=== PATIENT | female | born 1995 | race Caucasian/White ===

== ENCOUNTER 2024-06-30 07:54 | Emergency (ER) | payer BC, MEDICAID ==
[2024-06-30 08:16] LABS: BASOPHILS ABSOLUTE AUTO 0.05 K/uL (0.00-0.10); BASOPHILS PERCENT AUTO 0.6 % (0.1-1.3); EOSINOPHILS ABSOLUTE AUTO 1.84 K/uL (0.00-0.40); EOSINOPHILS PERCENT AUTO 21.6 % (0.0-5.4); HEMATOCRIT 47.6 % (34.3-46.0); HEMOGLOBIN 16.3 g/dL (11.2-15.5); IMMATURE GRAN PERCENT AUTO 0.2 % (0.0-0.7); LYMPHOCYTES ABSOLUTE AUTO 1.25 K/uL (0.8-3.3); LYMPHOCYTES PERCENT AUTO 14.7 % (11.4-47.7); MEAN CORPUSCULAR HEMOGLOBIN 28.4 pg (31.6-35.5); MEAN CORPUSCULAR HGB CONC 34.2 g/dL (31.6-35.5); MEAN CORPUSCULAR VOLUME 82.9 fL (81.4-99.0); MONOCYTES ABSOLUTE AUTO 0.96 K/uL (0.20-0.90); MONOCYTES PERCENT AUTO 11.3 % (3.3-12.6); NEUTROPHILS ABSOLUTE AUTO 4.39 K/uL (1.0-7.6); NEUTROPHILS PERCENT AUTO 51.6 % (40.0-78.1); PLATELET COUNT,PLT 349 K/uL (130-375); RED BLOOD CELL COUNT 5.74 M/uL (3.77-5.24); WHITE BLOOD CELL COUNT,WBC 8.5 K/uL (3.2-11.0)
[2024-06-30 08:18] LABS: IMMATURE GRAN ABSOLUTE AUTO 0.02 K/uL (0.00-0.23)
[2024-06-30] MEDS: Albuterol/Ipratropium 3.0-0.5 MG/3 ML Neb Soln NEB ONE (08:25)
[2024-06-30] MEDS: Sodium Chloride 0.9% 10 ML Syringe FLUSH PRN (08:34)
[2024-06-30] MEDS: methylPREDNISolone Sodium Succinate 125 MG/2 ML SDV IVPUSH ONE (08:34)
[2024-06-30 08:38] LABS: A/G RATIO 0.9 (1.2-2.2); ALANINE AMINOTRANSFERASE,ALT 42 U/L (12-78); ALBUMIN 4.5 g/dL (3.4-5.0); ALKALINE PHOSPHATASE 122 U/L (46-116); ASPARTATE AMNIOTRANSFERASE,AST 32 U/L (15-37); BILIRUBIN TOTAL 0.7 mg/dL (0.2-1.0); BLOOD UREA NITROGEN,BUN 7 mg/dL (7-18); CALCIUM 9.7 mg/dL (8.5-10.1); CARBON DIOXIDE,CO2 26 mmol/L (21-32); CHLORIDE,CL 100 mmol/L (100-108); CREATININE 0.8 mg/dL (0.6-1.0); EST CRCL DRUG DOSING (CG) 99.91 mL/min; ESTIMATED GFR 103 mL/min (>60); GLUCOSE RANDOM 118 mg/dL (74-106); POTASSIUM,K 3.4 mmol/L (3.6-5.2); PROTEIN TOTAL,TP 9.5 g/dL (6.4-8.2); SODIUM,NA 139 mmol/L (140-148)
[2024-06-30 08:41] LABS: ANION GAP 16.4 mmol/L (5.0-14.0)
[2024-06-30] MEDS: Albuterol 0.083% 2.5 MG/3 ML Neb Soln NEB ONE (09:10)
[2024-06-30 09:30] LABS: INFLUENZA A NAA NEGATIVE (NEGATIVE); INFLUENZA B NAA NEGATIVE (NEGATIVE); RESPIRATORY SYNCYTIAL VIR NAA NEGATIVE (NEGATIVE)
[2024-06-30 09:32] LABS: CORONAVIRUS COVID-19 NAA POSITIVE (NEGATIVE)
== END 2024-06-30 12:20 | disposition home or self-care (01) ==
LOC: JP.ED 07:54
DX: U07.1 COVID-19 (principal); J98.01 Acute bronchospasm; D72.10 Eosinophilia, unspecified
CPT/HCPCS: 0241U; 36415; 71046; 80053; 85025; 94640; 96374; 99284; 99285; J2919; J7620

== ENCOUNTER 2024-07-03 05:58 | Emergency (ER) | payer BC ==
[2024-07-03] MEDS: Albuterol/Ipratropium 3.0-0.5 MG/3 ML Neb Soln NEB ONE (06:10)
[2024-07-03 06:34] LABS: BASOPHILS ABSOLUTE AUTO 0.07 K/uL (0.00-0.10); BASOPHILS PERCENT AUTO 0.6 % (0.1-1.3); EOSINOPHILS ABSOLUTE AUTO 2.86 K/uL (0.00-0.40); EOSINOPHILS PERCENT AUTO 23.1 % (0.0-5.4); HEMATOCRIT 44.2 % (34.3-46.0); IMMATURE GRAN ABSOLUTE AUTO 0.07 K/uL (0.00-0.23); IMMATURE GRAN PERCENT AUTO 0.6 % (0.0-0.7); LYMPHOCYTES ABSOLUTE AUTO 1.98 K/uL (0.8-3.3); MEAN CORPUSCULAR HEMOGLOBIN 28.7 pg (31.6-35.5); MEAN CORPUSCULAR HGB CONC 33.9 g/dL (31.6-35.5); MEAN CORPUSCULAR VOLUME 84.7 fL (81.4-99.0); MONOCYTES ABSOLUTE AUTO 1.08 K/uL (0.20-0.90); MONOCYTES PERCENT AUTO 8.7 % (3.3-12.6); NEUTROPHILS ABSOLUTE AUTO 6.34 K/uL (1.0-7.6); PLATELET COUNT,PLT 379 K/uL (130-375); RED BLOOD CELL COUNT 5.22 M/uL (3.77-5.24); WHITE BLOOD CELL COUNT,WBC 12.4 K/uL (3.2-11.0)
[2024-07-03] MEDS: LORazepam 2 MG/ML SDV IVPUSH ONE (06:34)
[2024-07-03] MEDS: methylPREDNISolone Sodium Succinate 125 MG/2 ML SDV IVPUSH ONE (06:36)
[2024-07-03 06:58] LABS: A/G RATIO 0.9 (1.2-2.2); ALANINE AMINOTRANSFERASE,ALT 41 U/L (12-78); ALBUMIN 3.9 g/dL (3.4-5.0); ALKALINE PHOSPHATASE 115 U/L (46-116); ANION GAP 11.1 mmol/L (5.0-14.0); ASPARTATE AMNIOTRANSFERASE,AST 34 U/L (15-37); BILIRUBIN TOTAL 0.5 mg/dL (0.2-1.0); BLOOD UREA NITROGEN,BUN 6 mg/dL (7-18); CALCIUM 9.1 mg/dL (8.5-10.1); CARBON DIOXIDE,CO2 28 mmol/L (21-32); CHLORIDE,CL 102 mmol/L (100-108); CREATININE 0.7 mg/dL (0.6-1.0); EST CRCL DRUG DOSING (CG) 112.01 mL/min; ESTIMATED GFR 121 mL/min (>60); GLUCOSE RANDOM 120 mg/dL (74-106); POTASSIUM,K 3.7 mmol/L (3.6-5.2); PROTEIN TOTAL,TP 8.3 g/dL (6.4-8.2); SODIUM,NA 141 mmol/L (140-148)
[2024-07-03] MEDS: Sodium Chloride 0.9% 1,000 ML IV SCH (06:58)
[2024-07-03] MEDS: Racepinephrine 2.25% 0.5 ML Neb Soln NEB ONE (07:19)
[2024-07-03] MEDS: Sodium Chloride 0.9% Inhalation Soln 3 ML Neb INH PRN (07:19)
[2024-07-03] MEDS: Morphine 4 MG/ML Syringe IVPUSH ONE (07:36)
[2024-07-03 08:23] LABS: C-REACTIVE PROTEIN 1.11 mg/dL (<0.50); TROPONIN I HIGH SENSITIVITY 4.4 pg/mL (<=60.3)
[2024-07-03] MEDS: Sodium Chloride 0.9% 10 ML Syringe FLUSH ONE (08:35)
[2024-07-03] MEDS: Iopamidol 755 Mg/ML 100 ML Bottle IV SCH (08:35)
[2024-07-03] MEDS: Sodium Chloride 0.9% 100 ML IV SCH (08:35)
[2024-07-03] MEDS ORDERED: Naloxone 0.4 MG/ML SDV IVPUSH PRN ×2 (10:19→10:32)
[2024-07-03] MEDS ORDERED: LORazepam 2 MG/ML SDV IVPUSH PRN (10:30)
[2024-07-03] MEDS ORDERED: Morphine 2 MG/ML SYRINGE IVPUSH PRN (10:32)
[2024-07-03] MEDS: Morphine 10 MG/ML Syringe IVPUSH ONE (11:15)
[2024-07-03] MEDS: Ondansetron 4 MG/2 ML SDV IVPUSH ONE (11:38)
== END 2024-07-03 11:39 ==
LOC: JP.ED 05:58
DX: U07.1 COVID-19 (principal); Z79.899 Other long term (current) drug therapy
CPT/HCPCS: 36415; 71275; 80053; 83605; 84145; 84484; 84703; 85025; 86140; 87428; 94640; 96361; 96374; 96375; 96376; 99285; J2060; J2270; J2919; J3490; J7030; Q9967; J7620

== ENCOUNTER 2024-07-23 17:06 | Emergency (ER) | payer BC, OTHER ==
[2024-07-23] MEDS ORDERED: Sodium Chloride 0.9% 10 ML Syringe FLUSH PRN (17:13)
[2024-07-23] MEDS: Sodium Chloride 0.9% 500 ML IV ONE (17:21)
[2024-07-23] MEDS: Albuterol/Ipratropium 3.0-0.5 MG/3 ML Neb Soln NEB ONE ×2 (17:21→19:46)
[2024-07-23 17:23] LABS: BASOPHILS ABSOLUTE AUTO 0.04 K/uL (0.00-0.10); BASOPHILS PERCENT AUTO 0.3 % (0.1-1.3); EOSINOPHILS ABSOLUTE AUTO 1.25 K/uL (0.00-0.40); EOSINOPHILS PERCENT AUTO 8.5 % (0.0-5.4); HEMATOCRIT 41.6 % (34.3-46.0); IMMATURE GRAN ABSOLUTE AUTO 0.05 K/uL (0.00-0.23); IMMATURE GRAN PERCENT AUTO 0.3 % (0.0-0.7); LYMPHOCYTES ABSOLUTE AUTO 0.53 K/uL (0.8-3.3); LYMPHOCYTES PERCENT AUTO 3.6 % (11.4-47.7); MEAN CORPUSCULAR HEMOGLOBIN 28.9 pg (31.6-35.5); MEAN CORPUSCULAR HGB CONC 33.7 g/dL (31.6-35.5); MONOCYTES ABSOLUTE AUTO 0.56 K/uL (0.20-0.90); MONOCYTES PERCENT AUTO 3.8 % (3.3-12.6); NEUTROPHILS ABSOLUTE AUTO 12.25 K/uL (1.0-7.6); NEUTROPHILS PERCENT AUTO 83.5 % (40.0-78.1); PLATELET COUNT,PLT 254 K/uL (130-375); RED BLOOD CELL COUNT 4.84 M/uL (3.77-5.24); WHITE BLOOD CELL COUNT,WBC 14.7 K/uL (3.2-11.0)
[2024-07-23 17:31] LABS: BASE EXCESS ARTERIAL -2.7 mm/L; CARBOXYHEMOGLOBIN 1.9 % (0.0-1.6); METHEMOGLOBIN 0.8 %; O2 SATURATION ARTERIAL 98.6 % (95.0-98.0); OXYHEMOGLOBIN 95.9 %; PCO2 ARTERIAL 30.4 mmHg (35.0-42.0)
[2024-07-23 17:48] LABS: A/G RATIO 0.9 (1.2-2.2); ALANINE AMINOTRANSFERASE,ALT 32 U/L (12-78); ALBUMIN 3.8 g/dL (3.4-5.0); ALKALINE PHOSPHATASE 106 U/L (46-116); ANION GAP 10.4 mmol/L (5.0-14.0); ASPARTATE AMNIOTRANSFERASE,AST 28 U/L (15-37); BILIRUBIN TOTAL 0.5 mg/dL (0.2-1.0); BLOOD UREA NITROGEN,BUN 6 mg/dL (7-18); CALCIUM 9.1 mg/dL (8.5-10.1); CARBON DIOXIDE,CO2 26 mmol/L (21-32); CHLORIDE,CL 104 mmol/L (100-108); CREATININE 0.6 mg/dL (0.6-1.0); EST CRCL DRUG DOSING (CG) 130.68 mL/min; ESTIMATED GFR 125 mL/min (>60); GLUCOSE RANDOM 127 mg/dL (74-106); POTASSIUM,K 3.8 mmol/L (3.6-5.2); SODIUM,NA 140 mmol/L (140-148)
[2024-07-23 17:49] LABS: TROPONIN I HIGH SENSITIVITY < 4.0 pg/mL (<=60.3)
[2024-07-23] MEDS: methylPREDNISolone Sodium Succinate 40 MG/1 ML SDV IVPUSH ONE (18:00)
[2024-07-23] MEDS: LORazepam 2 MG/ML SDV IVPUSH ONE (19:19)
[2024-07-23] MEDS: Sodium Chloride 0.9% 80 ML IV SCH (20:06)
[2024-07-23] MEDS: Iopamidol 755 Mg/ML 100 ML Bottle IV SCH (20:06)
[2024-07-23] MEDS: Dexamethasone 4 MG/ML SDV IVPUSH ONE (21:44)
[2024-07-23] MEDS: cefTRIAXone 2 GM in Sodium Chloride 0.9% 50 ML IV ONE (21:51)
[2024-07-23] MEDS: Doxycycline 100 MG Cap PO ONE (21:51)
[2024-07-24] MEDS: Sodium Chloride 0.9% 1,000 ML IV SCH (00:35)
[2024-07-24] MEDS: Albuterol/Ipratropium 3.0-0.5 MG/3 ML Neb Soln NEB ONE (04:25)
[2024-07-24] MEDS: Doxycycline 100 MG Cap PO SCH (15:00)
[2024-07-24] MEDS: cefTRIAXone 2 GM in Sodium Chloride 0.9% 50 ML IV ONE (20:53)
[2024-07-24] MEDS: Dexamethasone 4 MG/ML SDV IVPUSH ONE (21:13)
== END 2024-07-24 22:57 | disposition home or self-care (01) ==
LOC: JP.ED 17:06
DX: J18.9 Pneumonia, unspecified organism (principal); Z86.16 Personal history of COVID-19; Z79.899 Other long term (current) drug therapy
CPT/HCPCS: 36415; 36600; 71045; 71275; 80053; 82803; 84484; 85025; 85379; 87040; 94640; 96361; 96365; 96366; 96375; 96376; 99285; A9270; J0696; J1100; J2060; J3490; J7030; J7040; Q9967; 87798; 99284; J7620